=== PATIENT | female | born 1975 | race American Indian/Alaskan Native ===

== ENCOUNTER 2017-04-03 16:28 | Inpatient (IN) | payer OTHER ==
[2017-04-03] MEDS ORDERED: D5W/0.45% NACL/KCL 20 MEQ 20 MEQ/1,000 ML BAG IV SCH (18:00)
[2017-04-03 22:30] LABS: Basophils % (Auto) 0.4 % (0.0-1.8); Eosinophils % (Auto) 2.5 % (0.0-4.3); Hematocrit 35.6 % (30.3-42.9); Mean Corpuscular HGB Conc 34 % (30-34); Mean Corpuscular Hemoglobin 28 pg (28-32); Mean Corpuscular Volume 81 fl (79-97); Platelet Count 264 K/mm3 (140-440); Red Blood Count 4.37 M/mm3 (3.65-5.03); Red Cell Distribution Width 13.1 % (13.2-15.2)
[2017-04-03 23:02] LABS: Alanine Aminotransferase 17 units/L (7-56); Albumin 3.2 g/dL (3.9-5); Alkaline Phosphatase 40 units/L (35-129); Anion Gap 16 mmol/L; BUN/Creatinine Ratio 9; Blood Urea Nitrogen 9 mg/dL (7-17); Calcium 8.5 mg/dL (8.4-10.2); Carbon Dioxide 32 mmol/L (22-30); Chloride 94.7 mmol/L (98-107); Glucose 92 mg/dL (65-100); Sodium 140 mmol/L (137-145); Total Protein 6.5 g/dL (6.3-8.2)
[2017-04-03 23:08] LABS: Potassium 2.8 mmol/L (3.6-5.0)
[2017-04-04] MEDS: MORPHINE IV PRN ×2 (00:20→06:30)
[2017-04-04] MEDS ORDERED: KCL 10MEQ/100ML 10 MEQ/100 ML BAG IV SCH (01:00)
[2017-04-04] MEDS ORDERED: KCL 10MEQ/100ML 10 MEQ/100 ML BAG IV ONE (01:54)
[2017-04-04] MEDS: KCL 10 MEQ in NACL 0.9% 100 ML IV SCH ×4 (02:30→06:00)
--- NOTE | 2017-04-04 07:26 | History and Physical Report ---
History of Present Illness Date of examination: 04/04/17 Date of admission: 04/03/17 20:54 Chief complaint: persistent nausea and vomiting History of present illness: 41 year old female with a hx of gastric banding 2010. For the past 2 months she has been having persistent nausea and vomiting. She had an UGI that showed that her gastric band had slipped out of position but was not obstructing her stomach. She was trying to complete the clearances to have her band removed and converted to another bariatric procedure. She was hypotensive at her pcp office yesterday and was sent to the ED. There she found that she was seemly hypokalemic. It was decided to transfer her to [facility] to have the band removed to resolved the vomiting that is likely causing her low potassium. Past History Past Medical History: hypertension, hyperlipidemia Past Surgical History: , Other (gastric banding) Social history: no significant social history Family history: no significant family history Medications and Allergies Allergies Allergy/AdvReac Type Severity Reaction Status Date / Time No Known Allergies Allergy Unverified 04/03/17 16:47 Active Meds: Active Medications Enoxaparin Sodium (Lovenox) 40 mg SUB-Q QDAY JOAN Potassium Chloride/Dextrose/Sod Cl (D5w/0.45% Nacl/Kcl 40 Meq) 40 meq in 1,000 mls @ 150 mls/hr IV DIRECT JOAN Morphine Sulfate (Morphine) 2 mg IV Q4H PRN PRN Reason: Pain, Moderate (4-6) Last Admin: 04/04/17 00:20 Dose: 2 mg Ondansetron HCl (Zofran) 4 mg IV Q4H PRN PRN Reason: Nausea And Vomiting Review of Systems All systems: negative - Constitutional weight loss Exam Vital Signs Temp Pulse Resp BP Pulse Ox 98.7 F 79 20 106/61 99 04/03/17 22:35 04/03/17 22:35 04/03/17 22:35 04/03/17 22:35 04/03/17 22:35 - General physical appearance Positive: well developed, no distress - Eyes Positive: PERRL - Neck Positive: no masses - Respiratory Positive: normal expansion, normal respiratory effort - Extremities Extremities: no ischemia - Abdomen Abdomen: Present: soft (non tender, port palpable to the left of midline) Results - Labs 04/03/17 21:43 04/03/17 21:51 Abnormal lab results 04/03/17 04/03/17 Range/Units 21:43 21:51 RDW 13.1 L (13.2-15.2) % Lymph % (Auto) 45.3 H (13.4-35.0) % Sac % (Auto) 9.0 H (0.0-7.3) % Potassium 2.8 L* (3.6-5.0) mmol/L Chloride 94.7 L (98-107) mmol/L Carbon Dioxide 32 H (22-30) mmol/L Albumin 3.2 L (3.9-5) g/dL Diabetes panel 04/03/17 Range/Units 21:51 Sodium 140 (137-145) mmol/L Potassium 2.8 L* (3.6-5.0) mmol/L Chloride 94.7 L (98-107) mmol/L Carbon Dioxide 32 H (22-30) mmol/L BUN 9 (7-17) mg/dL Creatinine 1.0 (0.7-1.2) mg/dL Glucose 92 (65-100) mg/dL Calcium 8.5 (8.4-10.2) mg/dL AST 20 (5-40) units/L ALT 17 (7-56) units/L Alkaline Phosphatase 40 (35-129) units/L Total Protein 6.5 (6.3-8.2) g/dL Albumin 3.2 L (3.9-5) g/dL Calcium panel 04/03/17 Range/Units 21:51 Calcium 8.5 (8.4-10.2) mg/dL Albumin 3.2 L (3.9-5) g/dL Pituitary panel 04/03/17 Range/Units 21:51 Sodium 140 (137-145) mmol/L Potassium 2.8 L* (3.6-5.0) mmol/L Chloride 94.7 L (98-107) mmol/L Carbon Dioxide 32 H (22-30) mmol/L BUN 9 (7-17) mg/dL Creatinine 1.0 (0.7-1.2) mg/dL Glucose 92 (65-100) mg/dL Calcium 8.5 (8.4-10.2) mg/dL Adrenal panel 04/03/17 Range/Units 21:51 Sodium 140 (137-145) mmol/L Potassium 2.8 L* (3.6-5.0) mmol/L Chloride 94.7 L (98-107) mmol/L Carbon Dioxide 32 H (22-30) mmol/L BUN 9 (7-17) mg/dL Creatinine 1.0 (0.7-1.2) mg/dL Glucose 92 (65-100) mg/dL Calcium 8.5 (8.4-10.2) mg/dL Total Bilirubin 0.90 (0.1-1.2) mg/dL AST 20 (5-40) units/L ALT 17 (7-56) units/L Alkaline Phosphatase 40 (35-129) units/L Total Protein 6.5 (6.3-8.2) g/dL Albumin 3.2 L (3.9-5) g/dL Assessment and Plan 1. slipped gastric band likely the cause of chronic nausea and vomiting scheduled to have band removed today 2. hypokalemia in the process of replacing potassium
[2017-04-04] MEDS ORDERED: PEPCID IV NR ×2 (08:00→14:30)
[2017-04-04 08:04] LABS: Alanine Aminotransferase 15 units/L (7-56); Albumin 2.9 g/dL (3.9-5); Alkaline Phosphatase 37 units/L (35-129); Anion Gap 13 mmol/L; BUN/Creatinine Ratio 9; Blood Urea Nitrogen 9 mg/dL (7-17); Calcium 8.6 mg/dL (8.4-10.2); Carbon Dioxide 32 mmol/L (22-30); Chloride 99.4 mmol/L (98-107); Glucose 85 mg/dL (65-100); Sodium 141 mmol/L (137-145); Total Protein 5.9 g/dL (6.3-8.2)
[2017-04-04] MEDS ORDERED: LOVENOX SUB-Q SCH (10:00)
[2017-04-04] MEDS: D5W/0.45% NACL/KCL 40 MEQ 40 MEQ/1,000 ML BAG IV SCH ×2 (10:45→23:32)
[2017-04-04] MEDS ORDERED: VERSED IV NR (11:00)
[2017-04-04 11:40] LABS: Anion Gap 12 mmol/L; BUN/Creatinine Ratio 10; Blood Urea Nitrogen 9 mg/dL (7-17); Calcium 8.7 mg/dL (8.4-10.2); Carbon Dioxide 32 mmol/L (22-30); Chloride 102.5 mmol/L (98-107); Glucose 99 mg/dL (65-100); Potassium 3.1 mmol/L (3.6-5.0); Sodium 143 mmol/L (137-145)
[2017-04-04] MEDS: LACTATED RINGERS 1,000 ML IV SCH (14:23)
[2017-04-04] MEDS ORDERED: MARCAINE-EPI/PF 0.5%-1:200,000 INFILTRATI ONE (14:24)
[2017-04-04] MEDS ORDERED: XYLOCAINE 1% 20 mL ONE (14:25)
--- NOTE | 2017-04-04 14:27 | Anesthesia Consultation ---
Anesthesia Consult and Med Hx Date of service: 04/04/17 - Airway Anesthetic Teeth Evaluation: Good ROM Head & Neck: Adequate Mental/Hyoid Distance: Adequate Mallampati Class: Class II Intubation Access Assessment: Probably Good - Pulmonary Exam CTA: Yes - Cardiac Exam Cardiac Exam: RRR - Pre-Operative Health Status ASA Pre-Surgery Classification: ASA2 Proposed Anesthetic Plan: General - Pulmonary Hx Asthma: No COPD: No Hx Pneumonia: Yes (AT AGE 9) - Cardiovascular System Hx Hypertension: Yes - Endocrine Hx End Stage Renal Disease: No - Other Systems Hx Cancer: No
--- NOTE | 2017-04-04 14:27 | Anesthesia Day of Surgery ---
Anesthesia Day of Surgery - Day of Surgery Patient Examined: Yes Patient H&P Reviewed: Yes Patient is NPO: Yes
[2017-04-04] MEDS ORDERED: SUBLIMAZE ONE (14:31)
[2017-04-04] MEDS ORDERED: DIPRIVAN 10 MG/ML IV ONE (14:31)
[2017-04-04] MEDS ORDERED: TRANSDERM-SCOP TD ONE (14:42)
[2017-04-04] MEDS ORDERED: TRANSDERM-SCOP TD NR (15:00)
[2017-04-04] MEDS ORDERED: FLAGYL 500 MG/100 ML 500 MG/100 ML BAG IV NR (15:00)
[2017-04-04] MEDS ORDERED: ANCEF/STERILE WATER 2 GM/20 ML IV NR (15:00)
[2017-04-04] MEDS ORDERED: DECADRON ONE (15:08)
[2017-04-04] MEDS ORDERED: XYLOCAINE MPF 2% ONE (15:20)
[2017-04-04] MEDS ORDERED: ZOFRAN ONE (15:21)
[2017-04-04] MEDS ORDERED: ROBINUL ONE (15:21)
[2017-04-04] MEDS ORDERED: NEOSTIGMINE ONE (15:21)
[2017-04-04] MEDS ORDERED: TORADOL ONE (15:27)
[2017-04-04] MEDS ORDERED: MARCAINE-EPI 0.5%-1:200,000 INFILTRATI ONE (15:36)
[2017-04-04] MEDS ORDERED: NACL 0.9% IR ONE ×2 (15:36→15:37)
[2017-04-04] MEDS ORDERED: XYLOCAINE 1% 20 mL INFILTRATI ONE (15:37)
[2017-04-04] MEDS ORDERED: QUELICIN ONE (15:41)
[2017-04-04] MEDS ORDERED: ZEMURON IV ONE (15:41)
--- NOTE | 2017-04-04 16:44 | Operative Report ---
Operative Report Operative Report: DATE: 04/04/17 SURGEON: DEDE GARCIA MD COUNSELING PSYCHOLOGIST: HOOD BLACKMON CSA PROCEDURE: 1. LAPAROSCOPIC REMOVAL OF GASTRIC BANDING SYSTEM 2. EGD PRE-OP DX: COMPLICATIONS OF GASTRIC BANDING POST OP DX: SLIPPAGE OF GASTRIC BANDING DETAILS: SEE FORMAL DICTATION ANESTHESIA: GETA COMPLICATIONS: NONE SPECIMENS: NONE
[2017-04-04] MEDS: DILAUDID IV PRN ×2 (17:15→17:25)
--- NOTE | 2017-04-04 18:37 | Operative Report ---
SURGEON: Dr. Donna Walls. SUPERVISOR INDUSTRIAL GARMENT: Dr. Rodri Gilliland CSA. PREOPERATIVE DIAGNOSIS: Complications of gastric banding. POSTOPERATIVE DIAGNOSIS: Complications of gastric banding. PROCEDURE PERFORMED: 1. Laparoscopic removal of gastric banding system. 2. EGD. ANESTHESIA: General with endotracheal tube intubation. SPECIMENS: None. ESTIMATED BLOOD LOSS: Less than 10 mL. FINDINGS: A severely anterior slip of her gastric banding system. INDICATIONS: The patient is a 41-year-old female with a history of gastric banding since 2010, who for several months has been having persistent nausea and vomiting. She was sent to the Emergency Room yesterday for hypotension. They found her to be severely hypokalemic which I thought was the result of her chronic nausea and vomiting. She was transferred to [facility] for removal of her gastric band. She signed informed consent. DESCRIPTION OF PROCEDURE: The patient was brought to OR suite and laid in supine position. Bilateral lower extremity SCDs were placed. General anesthesia was induced via successful endotracheal tube intubation. The patient's abdomen was prepped and draped in sterile fashion. Starting with a stab incision in the left subcostal area, the abdomen was insufflated to a pressure of 18 mmHg after which using Optiview technique, a 5 mm trocar was placed in the left mid abdomen, 2 cm superior to the umbilicus. There was no gross injury to any intra-abdominal structures. Four working trocars were placed under direct visualization, a 15 mm in the right mid abdomen and three 5 mm trocars, one in the right upper quadrant, epigastric and left upper quadrant areas. The patient was placed in steep reverse Trendelenburg position and the liver retractor was used to elevate the left lateral liver. The band was visualized and it was encapsulated in significant scar tissue as well as noted a significant anterior gastric prolapse over her band with a significant amount of stomach and fundus billowing over the bands. The capsule around the band was excised. The band was unbuckled and removed. The tubing was cut and the band was removed from the abdominal cavity. The gastrogastric sutures were taken down as well as any adhesions to try to normalize the previous normal gastric anatomy. An EGD was performed that showed no transmural thickness injury to the stomach wall as well as no further signs of obstruction. Shilpa was placed at the fundus of the stomach due to the superficial persistent oozing. The abdomen was then desufflated. The 15 mm trocar site was closed with a #1 PDS using a suture passer device. The port what was on the left side was excised off of the rectus muscle and this pocket was then closed in a layered fashion, 2-0 Vicryl followed by 4-0 Monocryl. All incisions were closed with 4-0 Monocryl followed by Dermabond. The patient was awoken, extubated, and taken to recovery in stable condition. The patient wants to get approved for conversion to a different bariatric procedure, it is advised due to the complexity of this procedure and her stomach being slightly compromised due to the longstanding prolapse and distortion that she wait at least 6 months to allow her stomach to heal before proceeding to another procedure. All counts were correct. JOB# [id number] HAFSA/LENA
[2017-04-05] MEDS: ZOFRAN IV PRN ×2 (02:33→18:10)
[2017-04-05] MEDS: MORPHINE IV PRN ×4 (02:33→22:03)
[2017-04-05 04:51] LABS: Anion Gap 13 mmol/L; BUN/Creatinine Ratio 10; Blood Urea Nitrogen 11 mg/dL (7-17); Calcium 8.5 mg/dL (8.4-10.2); Carbon Dioxide 27 mmol/L (22-30); Chloride 102.1 mmol/L (98-107); Glucose 140 mg/dL (65-100); Sodium 139 mmol/L (137-145)
[2017-04-05] MEDS: D5W/0.45% NACL/KCL 40 MEQ 40 MEQ/1,000 ML BAG IV SCH ×2 (06:17→21:57)
[2017-04-05] MEDS ORDERED: LACTATED RINGERS 1,000 ML IV ONE (07:45)
[2017-04-05] MEDS ORDERED: NACL 0.9% 1000 ML 1,000 ML ONE (10:29)
[2017-04-05] MEDS: KCL 10MEQ/100ML 10 MEQ/100 ML BAG IV SCH ×4 (10:32→15:40)
[2017-04-05 11:23] LABS: Basophils % (Auto) 0.1 % (0.0-1.8); Eosinophils % (Auto) 0.3 % (0.0-4.3); Hematocrit 25.6 % (30.3-42.9); Hemoglobin 8.4 gm/dl (10.1-14.3); Mean Corpuscular HGB Conc 33 % (30-34); Mean Corpuscular Hemoglobin 27 pg (28-32); Mean Corpuscular Volume 82 fl (79-97); Platelet Count 215 K/mm3 (140-440); Red Blood Count 3.11 M/mm3 (3.65-5.03); Red Cell Distribution Width 13.4 % (13.2-15.2); White Blood Count 9.6 K/mm3 (4.5-11.0)
[2017-04-05 18:14] LABS: Anion Gap 14 mmol/L; BUN/Creatinine Ratio 10; Blood Urea Nitrogen 9 mg/dL (7-17); Calcium 7.8 mg/dL (8.4-10.2); Carbon Dioxide 25 mmol/L (22-30); Chloride 105.2 mmol/L (98-107); Glucose 88 mg/dL (65-100); Potassium 3.4 mmol/L (3.6-5.0); Sodium 141 mmol/L (137-145)
[2017-04-05 20:10] LABS: Hematocrit 25.5 % (30.3-42.9); Hemoglobin 8.5 gm/dl (10.1-14.3)
[2017-04-05 20:22] LABS: Creatine Kinase 139 units/L (30-135)
[2017-04-05 20:23] LABS: Creatine Kinase MB < 1.0 ng/mL (0.0-4.0)
--- NOTE | 2017-04-05 22:36 | Progress Note ---
Assessment and Plan POD #1 s/p lap removal of gastric banding system due to slippage of the band and persistent prolonged n/v. afebrile, but hypotensive, may be related to acute post op anemia. nausea and vomiting resolved bolused with LR and NS during the day and started q8 h/h. will continue to follow and start on clear liquids. Subjective Date of service: 04/05/17 (no acute events over night except asymptomatic hypotension) Patient Reports: Positive: feels better Objective Vital Signs - 12hr 04/05/17 04/05/17 04/05/17 12:00 14:00 16:00 Temperature 98.6 F 98.8 F Pulse Rate 71 72 77 Respiratory 18 18 18 Rate Blood Pressure Blood Pressure 88/55 94/52 88/49 [Right] O2 Sat by Pulse 94 95 Oximetry 04/05/17 04/05/17 18:58 20:00 Temperature 98.8 F Pulse Rate 89 91 H Respiratory 18 18 Rate Blood Pressure 92/56 Blood Pressure 102/54 [Right] O2 Sat by Pulse 96 99 Oximetry - General physical appearance well developed, no distress - Respiratory normal expansion, normal respiratory effort - Abdomen soft, other (appropriatly tender to palpation, incisions c/d/i) - Labs 04/05/17 19:48 04/05/17 17:41 Diabetes panel 04/05/17 04/05/17 Range/Units 03:52 17:41 Sodium 139 141 (137-145) mmol/L Potassium 3.0 L 3.4 L (3.6-5.0) mmol/L Chloride 102.1 105.2 (98-107) mmol/L Carbon Dioxide 27 25 (22-30) mmol/L BUN 11 9 (7-17) mg/dL Creatinine 1.1 0.9 (0.7-1.2) mg/dL Glucose 140 H 88 (65-100) mg/dL Calcium 8.5 7.8 L (8.4-10.2) mg/dL Calcium panel 04/05/17 04/05/17 Range/Units 03:52 17:41 Calcium 8.5 7.8 L (8.4-10.2) mg/dL Pituitary panel 04/05/17 04/05/17 Range/Units 03:52 17:41 Sodium 139 141 (137-145) mmol/L Potassium 3.0 L 3.4 L (3.6-5.0) mmol/L Chloride 102.1 105.2 (98-107) mmol/L Carbon Dioxide 27 25 (22-30) mmol/L BUN 11 9 (7-17) mg/dL Creatinine 1.1 0.9 (0.7-1.2) mg/dL Glucose 140 H 88 (65-100) mg/dL Calcium 8.5 7.8 L (8.4-10.2) mg/dL Adrenal panel 04/05/17 04/05/17 Range/Units 03:52 17:41 Sodium 139 141 (137-145) mmol/L Potassium 3.0 L 3.4 L (3.6-5.0) mmol/L Chloride 102.1 105.2 (98-107) mmol/L Carbon Dioxide 27 25 (22-30) mmol/L BUN 11 9 (7-17) mg/dL Creatinine 1.1 0.9 (0.7-1.2) mg/dL Glucose 140 H 88 (65-100) mg/dL Calcium 8.5 7.8 L (8.4-10.2) mg/dL
[2017-04-06] MEDS: D5W/0.45% NACL/KCL 40 MEQ 40 MEQ/1,000 ML BAG IV SCH ×3 (04:38→18:37)
[2017-04-06] MEDS: MORPHINE IV PRN (04:41)
[2017-04-06 04:51] LABS: Hematocrit 23.5 % (30.3-42.9); Hemoglobin 8.1 gm/dl (10.1-14.3)
[2017-04-06 05:00] LABS: Alanine Aminotransferase 14 units/L (7-56); Albumin 2.4 g/dL (3.9-5); Albumin/Globulin Ratio 1.1 %; Alkaline Phosphatase 33 units/L (35-129); Anion Gap 13 mmol/L; BUN/Creatinine Ratio 9; Blood Urea Nitrogen 8 mg/dL (7-17); Calcium 7.7 mg/dL (8.4-10.2); Carbon Dioxide 24 mmol/L (22-30); Chloride 106.2 mmol/L (98-107); Glucose 96 mg/dL (65-100); Potassium 3.6 mmol/L (3.6-5.0); Sodium 140 mmol/L (137-145); Total Protein 4.5 g/dL (6.3-8.2)
[2017-04-06] MEDS ORDERED: MAGNESIUM SULFATE 2GM/50ML 2 GM/50 ML BAG IV ONE (11:25)
[2017-04-06] MEDS: PERCOCET 5/325 PO PRN ×3 (12:11→22:13)
--- NOTE | 2017-04-06 14:04 | Progress Note ---
Assessment and Plan POD#2 s/p removal of slipped lap band. stable with stable asymptomatic mild hypotension. stable h/h tolerating liquids will d/c serial h/h, observe for one more day with d/c planned for tomorrow. Subjective Date of service: 04/06/17 (Overnight she was complaining of chest pain that with work up showed a normal ekg, and cardiac enzymes. she says that the chest pain has resolved. she says she is feeling better and less weak. she is tolerating liquids) Patient Reports: Positive: feels better Objective Vital Signs - 12hr 04/06/17 04/06/17 04/06/17 04:07 08:04 12:10 Temperature 99.1 F 98.4 F 98.9 F Pulse Rate 90 83 87 Respiratory 18 16 18 Rate Blood Pressure 109/61 Blood Pressure 91/58 109/55 [Right] O2 Sat by Pulse 95 97 97 Oximetry 04/06/17 12:11 Temperature Pulse Rate Respiratory 20 Rate Blood Pressure Blood Pressure [Right] O2 Sat by Pulse Oximetry - General physical appearance well developed, no distress - Abdomen soft, other (approprialty tender to palpation, incisions c/d/i, right flank ecchymosis) - Labs 04/06/17 04:06 04/06/17 04:06 Diabetes panel 04/05/17 04/06/17 Range/Units 17:41 04:06 Sodium 141 140 (137-145) mmol/L Potassium 3.4 L 3.6 (3.6-5.0) mmol/L Chloride 105.2 106.2 (98-107) mmol/L Carbon Dioxide 25 24 (22-30) mmol/L BUN 9 8 (7-17) mg/dL Creatinine 0.9 0.9 (0.7-1.2) mg/dL Glucose 88 96 (65-100) mg/dL Calcium 7.8 L 7.7 L (8.4-10.2) mg/dL AST 19 (5-40) units/L ALT 14 (7-56) units/L Alkaline Phosphatase 33 L (35-129) units/L Total Protein 4.5 L D (6.3-8.2) g/dL Albumin 2.4 L (3.9-5) g/dL Calcium panel 04/05/17 04/06/17 Range/Units 17:41 04:06 Calcium 7.8 L 7.7 L (8.4-10.2) mg/dL Albumin 2.4 L (3.9-5) g/dL Pituitary panel 04/05/17 04/06/17 Range/Units 17:41 04:06 Sodium 141 140 (137-145) mmol/L Potassium 3.4 L 3.6 (3.6-5.0) mmol/L Chloride 105.2 106.2 (98-107) mmol/L Carbon Dioxide 25 24 (22-30) mmol/L BUN 9 8 (7-17) mg/dL Creatinine 0.9 0.9 (0.7-1.2) mg/dL Glucose 88 96 (65-100) mg/dL Calcium 7.8 L 7.7 L (8.4-10.2) mg/dL Adrenal panel 04/05/17 04/06/17 Range/Units 17:41 04:06 Sodium 141 140 (137-145) mmol/L Potassium 3.4 L 3.6 (3.6-5.0) mmol/L Chloride 105.2 106.2 (98-107) mmol/L Carbon Dioxide 25 24 (22-30) mmol/L BUN 9 8 (7-17) mg/dL Creatinine 0.9 0.9 (0.7-1.2) mg/dL Glucose 88 96 (65-100) mg/dL Calcium 7.8 L 7.7 L (8.4-10.2) mg/dL Total Bilirubin 0.50 (0.1-1.2) mg/dL AST 19 (5-40) units/L ALT 14 (7-56) units/L Alkaline Phosphatase 33 L (35-129) units/L Total Protein 4.5 L D (6.3-8.2) g/dL Albumin 2.4 L (3.9-5) g/dL
[2017-04-07] MEDS: LACTATED RINGERS 1,000 ML IV SCH ×2 (04:51→13:56)
[2017-04-07 05:13] LABS: Basophils % (Auto) 0.3 % (0.0-1.8); Eosinophils % (Auto) 3.8 % (0.0-4.3); Hematocrit 23.7 % (30.3-42.9); Mean Corpuscular HGB Conc 34 % (30-34); Mean Corpuscular Hemoglobin 28 pg (28-32); Mean Corpuscular Volume 83 fl (79-97); Platelet Count 211 K/mm3 (140-440); Red Blood Count 2.86 M/mm3 (3.65-5.03); Red Cell Distribution Width 13.6 % (13.2-15.2); White Blood Count 5.2 K/mm3 (4.5-11.0)
[2017-04-07 05:29] LABS: Anion Gap 10 mmol/L; BUN/Creatinine Ratio 7; Blood Urea Nitrogen 5 mg/dL (7-17); Calcium 7.8 mg/dL (8.4-10.2); Carbon Dioxide 25 mmol/L (22-30); Chloride 107.7 mmol/L (98-107); Glucose 91 mg/dL (65-100); Potassium 3.7 mmol/L (3.6-5.0); Sodium 139 mmol/L (137-145)
[2017-04-07] MEDS: PERCOCET 5/325 PO PRN (14:03)
[2017-04-07] MEDS ORDERED: MAGNESIUM SULFATE 2GM/50ML 2 GM/50 ML BAG IV ONE (14:24)
--- NOTE | 2017-04-07 14:29 | Progress Note ---
Assessment and Plan 41y.o. F admitted for slipped lap band, s/p removal POD 3 Pt doing well. She is tolerating diet, pain is controlled and she is ambulating H/H has stabilized. Her BP is 90s sys to low 100s. [place] records at time of transfer show this is her baseline. Pt is stable for discharge. She will follow up in the office for post op visit in 1 week. - Patient Problems (1) H/O laparoscopic adjustable gastric banding Current Visit: Yes Status: Acute Subjective Narrative: Pt feeling well. Denies abdominal pain. denies n/v. She had an omelette for breakfast with any issues. +ambulation. Objective Vital Signs - 12hr 04/07/17 04/07/17 04:48 14:03 Temperature 99.3 F Pulse Rate 85 Respiratory 18 16 Rate Blood Pressure 86/47 O2 Sat by Pulse 98 Oximetry - General physical appearance well developed, well nourished, no distress - Respiratory normal expansion - Abdomen soft, other (incision sites minimal tenderness, incision are cdi. RUQ incision with ecchymosis without hematoma or induration. ) - Musculoskeletal normal gait, normal posture - Psychiatric oriented to time, oriented to person, oriented to place, speech is normal - Labs 04/07/17 04:54 04/07/17 04:54 Diabetes panel 04/07/17 Range/Units 04:54 Sodium 139 (137-145) mmol/L Potassium 3.7 (3.6-5.0) mmol/L Chloride 107.7 H (98-107) mmol/L Carbon Dioxide 25 (22-30) mmol/L BUN 5 L (7-17) mg/dL Creatinine 0.7 (0.7-1.2) mg/dL Glucose 91 (65-100) mg/dL Calcium 7.8 L (8.4-10.2) mg/dL Calcium panel 04/07/17 Range/Units 04:54 Calcium 7.8 L (8.4-10.2) mg/dL Pituitary panel 04/07/17 Range/Units 04:54 Sodium 139 (137-145) mmol/L Potassium 3.7 (3.6-5.0) mmol/L Chloride 107.7 H (98-107) mmol/L Carbon Dioxide 25 (22-30) mmol/L BUN 5 L (7-17) mg/dL Creatinine 0.7 (0.7-1.2) mg/dL Glucose 91 (65-100) mg/dL Calcium 7.8 L (8.4-10.2) mg/dL Adrenal panel 04/07/17 Range/Units 04:54 Sodium 139 (137-145) mmol/L Potassium 3.7 (3.6-5.0) mmol/L Chloride 107.7 H (98-107) mmol/L Carbon Dioxide 25 (22-30) mmol/L BUN 5 L (7-17) mg/dL Creatinine 0.7 (0.7-1.2) mg/dL Glucose 91 (65-100) mg/dL Calcium 7.8 L (8.4-10.2) mg/dL
--- NOTE | 2017-04-07 14:35 | Discharge Summary ---
Providers - Providers Date of Admission: 04/03/17 20:54 Attending physician: DEDE WALLS Primary care physician: JEANNETTE MONCADA MD Hospitalization Reason for admission: slipped gastric band Condition: Good Procedures: Removal of slipped lap band Hospital course: 41 year old female with a hx of gastric banding 2010 was admitted for slipped lap band. For the past 2 months she has been having persistent nausea and vomiting. She had an UGI that showed that her gastric band had slipped out of position but was not obstructing her stomach. She was trying to complete the clearances to have her band removed and converted to another bariatric procedure. TIt was decided to transfer her to [facility] to have the band removed. She underwent laparoscopic gastric band removal on 04/04/17. She tolerated the procedure well. Post operatively her hemoglobin trended down but stabilized. she was dehydrated and hemoconcentrated at time of orig assessment. Downward trend of Hgb is due to resus. of fluid due to dehydration with minimal blood loss. Post operatively she tolerated clears well and her pain was controlled. She denies fevers or abdominal pain, nausea or vomiting. Disposition: DC-01 TO HOME OR SELFCARE - Discharge Diagnoses (1) H/O laparoscopic adjustable gastric banding Status: Acute Core Measure Documentation - Palliative Care Palliative Care/ Comfort Measures: Not Applicable - Core Measures Any of the following diagnoses?: none Exam - Physical Exam Narrative exam: A+Ox3 Abd: soft, tender at incision sites. no rebound no guarding. RUQ incision with surrounding ecchymosis without hematoma or induration. - Constitutional Vitals: Temp Pulse Resp BP Pulse Ox 99.3 F 85 16 86/47 98 04/07/17 04:48 04/07/17 04:48 04/07/17 14:03 04/07/17 04:48 04/07/17 04:48 Plan Activity: other (no lifting >15lbs for 6 weeks ) Diet: advance as tolerated Wound: other (October shower Saturday) Additional Instructions: Call office to make an appointment with Dr. Walls. Follow up in 1 week. Follow up with: JEANNETTE MONCADA MD [Primary Care Provider] - 7 Days DEDE WALLS MD [Staff Physician] - 7 Days Prescriptions: oxyCODONE /ACETAMINOPHEN [Percocet 5/325 mg] 2 tab PO Q4H PRN #30 tablet PRN Reason: Pain, Moderate (4-6)
[2017-04-07 15:04] VITALS: BP 109/61
== END 2017-04-07 18:35 | disposition home or self-care (01) | DRG 988 ==
LOC: 3A 16:28 → UNDOADMIN 16:28 → 3B-SURG 20:54
PROVIDERS: ADMIT Surgery; ATTEND Surgery
PROC: 0DP64CZ Removal of Extraluminal Device from Stomach, Percutaneous Endoscopic Approach (ICD-10-PCS; principal; 2017-04-04)
PROC: 0DJ08ZZ Inspection of Upper Intestinal Tract, Via Natural or Artificial Opening Endoscopic (ICD-10-PCS; 2017-04-04)
DX: K95.09 Other complications of gastric band procedure (principal); D62 Acute posthemorrhagic anemia; E87.6 Hypokalemia; I95.9 Hypotension, unspecified; I10 Essential (primary) hypertension; E78.5 Hyperlipidemia, unspecified; Y83.8 Other surgical procedures as the cause of abnormal reaction of the patient, or of later complication, without mention of misadventure at the time of the procedure; Y92.89 Other specified places as the place of occurrence of the external cause; E86.0 Dehydration
CPT/HCPCS: 36415; 80048; 80053; 82140; 82550; 82553; 83735; 84484; 84703; 85014; 85018; 85025; 86850; 86900; 86901; 93005; 93010; A4217; J0330; J0690; J1100; J1170; J1885; J2250; J2270; J2405; J2704; J2710; J3010; J3475; J3480; J7030; J7120